=== PATIENT | male | born 1995 | race Caucasian/White ===

== ENCOUNTER 2018-02-23 17:36 | Emergency (ER) | payer OTHER ==
[2018-02-23 17:49] VITALS: BP 128/85
[2018-02-23] MEDS ORDERED: Tetan/Diph/Pertus SYR(Tdap)* 0.5 ML SYR(BOOSTRIX) use SYR IM ONE (18:02)
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
== END 2018-02-23 18:25 | disposition home or self-care (01) ==
LOC: UCEAST 17:36
DX: S00.81XA Abrasion of other part of head, initial encounter (principal); S09.90XA Unspecified injury of head, initial encounter; S61.412A Laceration without foreign body of left hand, initial encounter; V18.0XXA Pedal cycle driver injured in noncollision transport accident in nontraffic accident, initial encounter; Y93.55 Activity, bike riding; Y92.9 Unspecified place or not applicable
CPT/HCPCS: 90471; 90715; 99201; G0463

== ENCOUNTER → 2018-03-31 07:21 | Emergency (ER) | payer OTHER ==
[~2018-03-31 07:21] MED LIST: Acetaminophen TAB* 325 MG PO ONE; Ibuprofen TAB* 600 MG PO ONE; NS 0.9% 1000 ML* 1,000 ML IV ONE; NS 0.9% 1000 ML*IV.FLUID IV ONE
--- NOTE | 2018-03-31 07:41 | ED ---
Throat Pain/Nasal Congestion - HPI Summary HPI Summary: Patient is a 22 y/o M w/ c/o fever, chills, post-nasal drip two days ago. He states that about 45 minutes ago he was awoken by his post-nasal drip and was spitting up blood. He states he had one episode of coughing, denies chest pain. Patient reports Hx of syncope when "weak" (dehydrated, lack of food, post- surgery) for the past three years. He notes Hx of nasal surgery for deviated septum. Patient reports taking 600 mg ibuprofen at 2230 last night and Tylenol 500 mg at 0130/0200 today. On triage, associated severity is rated 3/10, lying flat is noted to aggravate Sx, nothing is reported to alleviate. Home medications and allergies are reviewed. - History of Current Complaint Chief Complaint: EDFever Hx Obtained From: Patient Onset/Duration: Lasting Minutes - spitting blood onset 45 minutes ago, Lasting Days - fever, chills, post-nasal drip onset two days ago, Still Present Severity: Mild - 3/10 Associated Signs And Symptoms: Positive: Negative Cough: Other: - patient reports one episode of coughing, notes he has been spitting up blood - Allergies/Home Medications Allergies/Adverse Reactions: Allergies Allergy/AdvReac Type Severity Reaction Status Date / Time No Known Allergies Allergy Verified 03/31/18 07:27 PMH/Surg Hx/FS Hx/Imm Hx Sensory History: Denies: Hx Legally Blind, Hx Deafness Opthamlomology History: Denies: Hx Legally Blind EENT History: Denies: Hx Deafness - Cancer History Cancer Type, Location and Year: "weird mole removed" - Surgical History Surgery Procedure, Year, and Place: deviated septum Infectious Disease History: No Infectious Disease History: Denies: Traveled Outside the [place] in Last 30 Days - Family History Known Family History: Negative: Blood Disorder Family History: Noncontributory - Social History Alcohol Use: Weekly Substance Use Type: Reports: Marijuana Substance Use Comment - Amount & Last Used: occ. Smoking Status (MU): Never Smoked Tobacco Review of Systems Positive: Fever, Chills Positive: Other - post nasal drip, spitting up blood Negative: Chest Pain Positive: Cough - reports coughing once All Other Systems Reviewed And Are Negative: Yes Physical Exam - Summary Physical Exam Summary: Appearance: Well appearing, no pain distress Skin: warm, dry, reflects adequate perfusion Head/face: normal Eyes: EOMI, MACK ENT: enlarged tonsils, bleeding from right tonsil Neck: supple, non-tender Respiratory: CTA, breath sounds present Cardiovascular: tachycardia, pulses symmetrical Abdomen: non-tender, soft Bowel: present Musculoskeletal: normal, strength/ROM intact Neuro: normal, sensory motor intact, A&Ox3 Triage Information Reviewed: Yes Vital Signs On Initial Exam: Initial Vitals Temp Pulse Resp BP Pulse Ox 103.5 F 110 16 149/73 98 03/31/18 07:24 03/31/18 07:24 03/31/18 07:24 03/31/18 07:24 03/31/18 07:24 Vital Signs Reviewed: Yes Diagnostics - Vital Signs Vital Signs Temp Pulse Resp BP Pulse Ox 03/31/18 07:24 103.5 F 110 16 149/73 98 - Laboratory Result Diagrams: 03/31/18 08:48 03/31/18 08:47 Lab Statement: Any lab studies that have been ordered have been reviewed, and results considered in the medical decision making process. - Radiology CXR Radiology Interpretation Completed By: Radiologist Summary of Radiographic Findings: CXR showed no evidence for active cardiopulmonary disease. This report was reviewed by ED physician. Re-Evaluation - Re-Evaluation First Eval Re-Evaluation Time: 10:28 Comment: Results of labs were discussed with patient. He was advised to repeated complete blood count in two days and to return to ED if labs are worse. Patient is agreeable with this plan. EENT Course/Dx - Course Course Of Treatment: Patient is a 22 y/o M w/ c/o fever, chills, post-nasal drip two days ago. He states that about 45 minutes ago he was awoken by his post -nasal drip and was spitting up blood. He states he had one episode of coughing , denies chest pain. Patient reports Hx of syncope when "weak" (dehydrated, lack of food, post-surgery) for the past three years. He notes Hx of nasal surgery for deviated septum. Patient reports taking 600 mg ibuprofen at 2230 last night and Tylenol 500 mg at 0130/0200 today. Physical exam showed enlarged tonsils and bleeding from right tonsil. Patient is tachycardic. During ED course , patient received fluids, Motrin 600 mg, Tylenol 975 mg. Bloodwork/UA obtained. CXR showed no evidence for active cardiopulmonary disease. Patient was negative for flu, mono and strep. Results of labs were discussed with patient. Patient's case was discussed with Dr. Jules at 1000. Repeat CBC is recommended in two days. He was advised to repeated complete blood count in two days and to return to ED if labs are worse. Patient is agreeable with this plan. Dx of fever, leukopenia, thrombocytopenia. - Differential Diagnoses Differential Diagnoses: Influenza, Pharyngitis, Tonsilitis, URI/Bronchitis - Diagnoses Provider Diagnoses: Fever, Thrombocytopenia, Leukopenia, Acute viral syndrome - Provider Notifications Discussed Care Of Patient With: Jose Jules Time Discussed With Above Provider: 10:00 Instructed by Provider To: Other - Patient's case was discussed with Dr. Jules at 1000. Repeat CBC is recommended in two days. Discharge - Sign-Out/Discharge Documenting (check all that apply): Patient Departure - discharge - Discharge Plan Condition: Stable Disposition: HOME Patient Education Materials: Fever in Adults (ED) Referrals: Care [facility] [Outside] - 2 Days Additional Instructions: REPEAT COMPLETE BLOOD COUNT IN TWO DAYS. IF YOUR LABS ARE WORSE, RETURN TO EMERGENCY DEPARTMENT. - Billing Disposition and Condition Condition: STABLE Disposition: Home - Attestation Statements Document Initiated by Rhoda: Yes Documenting Scribe: Cruz Villarreal Provider For Whom Rhoda is Documenting (Include Credential): Mike Agee MD Scribe Attestation: Cruz Story scribed for Mike Agee MD on 03/31/18 at 1214. Scribe Documentation Reviewed: Yes Provider Attestation: The documentation as recorded by the Cruz ulloa accurately reflects the service I personally performed and the decisions made by me, Mike Agee MD
--- NOTE | 2018-03-31 08:12 | RAD ---
INDICATION: Fever. COMPARISON: There are no relevant prior studies available for comparison. TECHNIQUE: Dual-energy PA and lateral views of the chest were obtained. FINDINGS: The heart is within normal limits in size. Mediastinal and hilar contours appear within normal limits. The lungs are clear. No pleural effusion is present. IMPRESSION: NO EVIDENCE FOR ACTIVE CARDIOPULMONARY DISEASE.
[2018-03-31 09:07] LABS: Hematocrit 40 % (42-52); Hemoglobin 13.6 g/dl (14.0-18.0); Mean Corpuscular HGB Conc 34 g/dl (31-36); Mean Corpuscular Hemoglobin 29 pg (27-31); Mean Corpuscular Volume 86 fL (80-94); Mean Platelet Volume 11.7 um3 (7.4-10.4); Platelet Count 70 10^3/ul (150-450); Red Blood Count 4.66 10^6/ul (4.00-5.40); Red Cell Distribution Width 13 % (10.5-15); White Blood Count 1.8 10^3/ul (3.5-10.8)
[2018-03-31 09:12] LABS: INR 1.24 (0.77-1.02)
[2018-03-31 09:13] LABS: EGFR Non-African American 121.5 (>60)
[2018-03-31 10:02] LABS: Urine Appearance Clear; Urine Blood Negative (Negative); Urine Color Straw; Urine Ketones Negative (Negative); Urine Protein Negative (Negative); Urine Specific Gravity 1.006 (1.010-1.030); Urine Urobilinogen Negative (Negative)
[2018-03-31 10:21] LABS: ABS Basophils 0 10^3/ul (0-0.2); Monocytes % 16 % (0-7)
[2018-03-31 11:14] VITALS: BP 132/70
== END | disposition home or self-care (01) ==
LOC: ED 07:21
DX: R50.9 Fever, unspecified (principal); D69.6 Thrombocytopenia, unspecified; D72.819 Decreased white blood cell count, unspecified; B34.9 Viral infection, unspecified
CPT/HCPCS: 36415; 71046; 80053; 81003; 85025; 85060; 85610; 85730; 86308; 87040; 87651; 96360; 99283; A9270-GY